=== PATIENT | male | born 1935 | race Asian ===

== ENCOUNTER 2022-04-27 11:01 | Inpatient (IN) | payer MEDICARE, OTHER ==
[~2022-04-27] VITALS: Ht 172.7 cm; Wt 72.7 kg
[2022-04-27 13:49] LABS: Basophils # (auto) 0 10 ^3/uL (0-0.2); Basophils % (auto) 0.2 % (0.0-2.0); Eosinophils # (auto) 0 10 ^3/uL (0-0.8); Eosinophils % (auto) 0.4 % (0.0-7.0); Hematocrit 38.2 % (41.0-53.0); Hemoglobin 13.1 g/dL (13.5-17.5); Lymphocytes # (auto) 1.1 10 ^3/uL (0.4-5.4); Lymphocytes % (auto) 16.4 % (10.0-50.0); Mean Corpuscular Hemoglobin 33.1 pg (28.0-32.0); Mean Corpuscular Hgb Conc. 34.4 g/dL (32.0-36.0); Mean Corpuscular Volume 96.4 fL (80.0-100.0); Monocytes # (auto) 0.5 10 ^3/uL (0-1.3); Monocytes % (auto) 7.9 % (0.0-12.0); Neutrophils # (auto) 4.9 10 ^3/uL (1.6-8.6); Neutrophils % (auto) 75.1 % (37.0-80.0); Nucleated Red Blood Cells % 0.1 %; Red Blood Cells 3.97 10^6/uL (4.5-5.90); Red Cell Distribution Width 13.8 % (11.8-14.3); White Blood Cell 6.5 10^3/uL (4.4-10.8)
[2022-04-27 13:59] LABS: BUN/Creatinine Ratio 22.5; Calcium 8.9 mg/dL (8.5-10.1); Potassium 4.1 mmol/L (3.5-5.1)
[2022-04-27 14:01] LABS: INR 1.1 (0.9-1.15); Partial Thromboplastin Time 37.6 sec (24.6-33.4)
[2022-04-27 14:02] LABS: Bilirubin, Total 1.1 mg/dL (0.2-1.0); Total Protein 6.7 g/dL (6.4-8.2)
[2022-04-27] MEDS ORDERED: TAMS0.4C36 PO (17:43)
[2022-04-27] MEDS ORDERED: SIMV-8 PO (17:43)
[2022-04-27] MEDS ORDERED: MEMA1TAB5 PO (17:43)
[2022-04-27] MEDS ORDERED: ACETAMINOPHEN 325 MG TAB PO PRN (17:45)
[2022-04-27] MEDS ORDERED: MORPHINE SULFATE INJ 2 MG/ml SYRG IV PRN (17:45)
[2022-04-27] MEDS ORDERED: HYDROcodone-ACET 5/325MG TAB PO PRN (17:45)
[2022-04-27 18:41] LABS: Cholesterol 138 mg/dL (< 200)
[2022-04-27 18:44] LABS: HDL Cholesterol 54 mg/dL (40-59); LDL Cholesterol 78 mg/dL (< 100); Triglycerides 71 mg/dL (< 150)
[2022-04-27 19:28] LABS: Urine WBC None Seen /hpf (0 - 3)
[2022-04-27 19:40] LABS: Urine Bacteria NONE SEEN /hpf (None Seen); Urine Blood Negative /uL (Negative); Urine Mucus FEW (None Seen); Urine Specific Gravity 1.017 (1.001-1.035)
[2022-04-28] MEDS: MEMANTINE HCL 5 MG TAB PO SCH (10:30)
[2022-04-28] MEDS: ENOXAPARIN SOD 40 MG/0.4 ML SYRINGE SC SCH (10:31)
[2022-04-28] MEDS ORDERED: HYDROcodone-ACET 5/325MG TAB PO PRN (13:45)
[2022-04-28] MEDS ORDERED: QUEtiapine FUMARATE 25 MG TAB PO PRN ×2 (14:45→15:00)
[2022-04-28] MEDS: ACETAMINOPHEN 500 MG TAB PO SCH ×2 (16:15→22:00)
[2022-04-28] MEDS ORDERED: TAMSULOSIN HYDROCHLORIDE 0.4 MG CAP PO SCH (18:00)
[2022-04-28] MEDS ORDERED: ATORVASTATIN 20 MG TAB PO SCH (22:00)
[2022-04-29] MEDS ORDERED: LORazepam 2MG/ML-1ML VIAL IM ONE (00:45)
[2022-04-29] MEDS ORDERED: HALOPERIDOL LACTATE 5 MG/ML INJ VIAL IM ONE (00:45)
[2022-04-29] MEDS: ACETAMINOPHEN 500 MG TAB PO SCH ×2 (07:30→14:00)
[2022-04-29 09:17] VITALS: BP 101/66
[2022-04-29] MEDS: ENOXAPARIN SOD 40 MG/0.4 ML SYRINGE SC SCH (10:00)
[2022-04-29] MEDS: MEMANTINE HCL 5 MG TAB PO SCH (10:00)
[2022-04-29 14:23] LABS: Albumin 3.2 g/dL (3.4-5.0); Calcium 8.7 mg/dL (8.5-10.1)
[2022-04-29 14:26] LABS: Bilirubin, Total 1.3 mg/dL (0.2-1.0); Total Protein 6.3 g/dL (6.4-8.2)
[2022-04-29 14:28] LABS: Basophils # (auto) 0 10 ^3/uL (0-0.2); Basophils % (auto) 0.3 % (0.0-2.0); Eosinophils # (auto) 0.1 10 ^3/uL (0-0.8); Eosinophils % (auto) 1.2 % (0.0-7.0); Hematocrit 38.9 % (41.0-53.0); Lymphocytes # (auto) 0.9 10 ^3/uL (0.4-5.4); Mean Corpuscular Hemoglobin 32.6 pg (28.0-32.0); Mean Corpuscular Hgb Conc. 33.5 g/dL (32.0-36.0); Mean Corpuscular Volume 97.2 fL (80.0-100.0); Monocytes # (auto) 0.5 10 ^3/uL (0-1.3); Neutrophils # (auto) 4.3 10 ^3/uL (1.6-8.6); Neutrophils % (auto) 74.5 % (37.0-80.0); Nucleated Red Blood Cells % 0.1 %; Red Cell Distribution Width 14.2 % (11.8-14.3); White Blood Cell 5.7 10^3/uL (4.4-10.8)
[2022-04-29] MEDS ORDERED: QUEtiapine FUMARATE 25 MG TAB PO SCH (22:00)
== END 2022-04-29 14:13 | disposition left against medical advice (07) | DRG 556 ==
LOC: EDBD 11:01 → ER 11:01 → OVERFLOW 17:41 → WEST WING 04-29 08:13
PROVIDERS: ADMIT Registered Nurse; ATTEND Student in an Organized Health Care Education/Training Program
DX: M25.551 Pain in right hip (principal); F03.90 Unspecified dementia, unspecified severity, without behavioral disturbance, psychotic disturbance, mood disturbance, and anxiety; N40.0 Benign prostatic hyperplasia without lower urinary tract symptoms; E78.5 Hyperlipidemia, unspecified; Z20.822 Contact with and (suspected) exposure to COVID-19; M79.89 Other specified soft tissue disorders; Z53.29 Procedure and treatment not carried out because of patient's decision for other reasons
CPT/HCPCS: 36415; 70450; 72192; 80053; 80061; 81001; 83880; 84484; 85025; 85379; 85610; 85730; 87426; 93971; G0378

== ENCOUNTER 2022-06-10 04:40 | Inpatient (IN) | payer MEDICARE, MEDICAID ==
[~2022-06-10] VITALS: Ht 182.9 cm; Wt 79.3 kg
[~2022-06-10 04:40] MED LIST: MEMA1TAB5 PO; SIMV-8 PO; TAMS0.4C36 PO
[2022-06-10 05:45] LABS: Albumin 3.5 g/dL (3.4-5.0); Calcium 8.5 mg/dL (8.5-10.1); Magnesium 2.9 mg/dL (1.6-2.6); Potassium 3.7 mmol/L (3.5-5.1)
[2022-06-10 05:48] LABS: Basophils # (auto) 0 10 ^3/uL (0-0.2); Basophils % (auto) 0.4 % (0.0-2.0); Eosinophils # (auto) 0 10 ^3/uL (0-0.8); Hematocrit 34.6 % (41.0-53.0); Hemoglobin 11.5 g/dL (13.5-17.5); Lymphocytes # (auto) 0.7 10 ^3/uL (0.4-5.4); Lymphocytes % (auto) 14.4 % (10.0-50.0); Mean Corpuscular Hemoglobin 32.3 pg (28.0-32.0); Mean Corpuscular Hgb Conc. 33.2 g/dL (32.0-36.0); Mean Corpuscular Volume 97.4 fL (80.0-100.0); Monocytes # (auto) 0.4 10 ^3/uL (0-1.3); Monocytes % (auto) 7.5 % (0.0-12.0); Neutrophils # (auto) 3.8 10 ^3/uL (1.6-8.6); Neutrophils % (auto) 76.7 % (37.0-80.0); Red Blood Cells 3.55 10^6/uL (4.5-5.90); Red Cell Distribution Width 15.6 % (11.8-14.3)
[2022-06-10 05:49] LABS: BUN/Creatinine Ratio 23.3 (10.0-20.0); Bilirubin, Total 0.6 mg/dL (0.2-1.0); Total Protein 6.6 g/dL (6.4-8.2)
[2022-06-10] MEDS ORDERED: CEPHALEXIN 250 MG CAP PO ONE (07:00)
[2022-06-10] MEDS ORDERED: TETANUS-DIPTH-ACEL PERTUSSIS 0.5ML SYR Tdap IM ONE (07:00)
[2022-06-10] MEDS ORDERED: ONDANSETRON HCL 4 MG/2 ML VIAL IV PRN (16:15)
[2022-06-10] MEDS ORDERED: DOCUSATE SOD 100 MG CAP PO PRN (16:15)
[2022-06-11 05:05] LABS: Basophils # (auto) 0 10 ^3/uL (0-0.2); Basophils % (auto) 0.8 % (0.0-2.0); Eosinophils # (auto) 0.1 10 ^3/uL (0-0.8); Eosinophils % (auto) 1.9 % (0.0-7.0); Hematocrit 34.3 % (41.0-53.0); Hemoglobin 11.3 g/dL (13.5-17.5); Lymphocytes # (auto) 0.6 10 ^3/uL (0.4-5.4); Lymphocytes % (auto) 16.5 % (10.0-50.0); Mean Corpuscular Hemoglobin 32.4 pg (28.0-32.0); Mean Corpuscular Volume 98.2 fL (80.0-100.0); Monocytes # (auto) 0.4 10 ^3/uL (0-1.3); Monocytes % (auto) 9.4 % (0.0-12.0); Neutrophils # (auto) 2.7 10 ^3/uL (1.6-8.6); Neutrophils % (auto) 71.4 % (37.0-80.0); Nucleated Red Blood Cells % 0.1 %; Red Cell Distribution Width 15.6 % (11.8-14.3); White Blood Cell 3.8 10^3/uL (4.4-10.8)
[2022-06-11 05:22] LABS: BUN/Creatinine Ratio 18.3 (10.0-20.0); Calcium 7.8 mg/dL (8.5-10.1); Magnesium 2.3 mg/dL (1.6-2.6); Potassium 3.4 mmol/L (3.5-5.1)
[2022-06-11 05:25] LABS: Bilirubin, Total 0.5 mg/dL (0.2-1.0); Total Protein 5.9 g/dL (6.4-8.2)
[2022-06-11] MEDS: ATORVASTATIN 20 MG TAB PO SCH ×3 (10:00→12:56)
[2022-06-11] MEDS: MEMANTINE HCL 5 MG TAB PO SCH ×3 (10:00→12:55)
[2022-06-11] MEDS: TAMSULOSIN HYDROCHLORIDE 0.4 MG CAP PO SCH ×3 (10:00→12:56)
[2022-06-11] MEDS: PANTOPRAZOLE 40 MG TAB PO SCH ×3 (10:00→12:58)
[2022-06-11] MEDS ORDERED: levoFLOXacin 500MG 100 ML IV ONE (13:00)
[2022-06-11] MEDS ORDERED: IOHEXOL 350 MG/ML 100ML IJ ONE (13:00)
[2022-06-12] VITALS (7 sets, daily range): BP systolic 97–109; BP diastolic 55–79
[2022-06-12] MEDS: levoFLOXacin 500MG 100 ML IV SCH (09:17)
[2022-06-12] MEDS: TAMSULOSIN HYDROCHLORIDE 0.4 MG CAP PO SCH (09:18)
[2022-06-12] MEDS: MEMANTINE HCL 5 MG TAB PO SCH (09:19)
[2022-06-12] MEDS: ATORVASTATIN 20 MG TAB PO SCH (09:19)
[2022-06-12] MEDS: PANTOPRAZOLE 40 MG TAB PO SCH (09:19)
[2022-06-12 16:05] LABS: Urine Bacteria NONE SEEN /hpf (None Seen); Urine Blood Negative /uL (Negative); Urine Mucus FEW (None Seen); Urine Specific Gravity 1.028 (1.001-1.035); Urine WBC 1 /hpf (0 - 3)
[2022-06-13] VITALS (7 sets, daily range): BP systolic 97–115; BP diastolic 46–70
[2022-06-13] MEDS: ATORVASTATIN 20 MG TAB PO SCH (09:01)
[2022-06-13] MEDS: PANTOPRAZOLE 40 MG TAB PO SCH (09:01)
[2022-06-13] MEDS: MEMANTINE HCL 5 MG TAB PO SCH (09:01)
[2022-06-13] MEDS: TAMSULOSIN HYDROCHLORIDE 0.4 MG CAP PO SCH (09:01)
[2022-06-13] MEDS: levoFLOXacin 500MG 100 ML IV SCH (09:02)
[2022-06-14 05:00] VITALS: BP 120/75
[2022-06-14 08:52] VITALS: BP 111/73
[2022-06-14] MEDS: ATORVASTATIN 20 MG TAB PO SCH (09:36)
[2022-06-14] MEDS: TAMSULOSIN HYDROCHLORIDE 0.4 MG CAP PO SCH (09:36)
[2022-06-14] MEDS: levoFLOXacin 500MG 100 ML IV SCH (09:36)
[2022-06-14] MEDS: MEMANTINE HCL 5 MG TAB PO SCH (09:36)
[2022-06-14] MEDS ORDERED: LEVO500T31 PO (09:53)
[2022-06-14 10:53] VITALS: BP 116/70
[2022-06-14 13:00] VITALS: BP 118/86
== END 2022-06-14 15:27 | disposition home health service (06) | DRG 183 ==
LOC: EDBD 04:40 → ER 04:40 → EDUNIT# 04:40 → TELE 16:13 → TELE-CENTR 06-11 23:35
PROVIDERS: ADMIT Nurse Practitioner Family; ATTEND Family Medicine
PROC: 0HQ0XZZ Repair Scalp Skin, External Approach (ICD-10-PCS; principal; 2022-06-10)
DX: S22.43XA Multiple fractures of ribs, bilateral, initial encounter for closed fracture (principal); J18.9 Pneumonia, unspecified organism; S27.322A Contusion of lung, bilateral, initial encounter; Y92.098 Other place in other non-institutional residence as the place of occurrence of the external cause; D72.829 Elevated white blood cell count, unspecified; E78.5 Hyperlipidemia, unspecified; F03.90 Unspecified dementia, unspecified severity, without behavioral disturbance, psychotic disturbance, mood disturbance, and anxiety; G89.11 Acute pain due to trauma; I10 Essential (primary) hypertension; E78.00 Pure hypercholesterolemia, unspecified; K59.00 Constipation, unspecified; F41.9 Anxiety disorder, unspecified; S01.01XA Laceration without foreign body of scalp, initial encounter; N40.0 Benign prostatic hyperplasia without lower urinary tract symptoms; W18.39XA Other fall on same level, initial encounter; Y93.89 Activity, other specified; Y99.8 Other external cause status
CPT/HCPCS: 12011; 36415; 70450; 71250; 71275; 72125; 74176; 80053; 81001; 83735; 84484; 85025; 85379; 87086; 90715; 93970; G0378; J1956

== ENCOUNTER 2022-06-23 10:41 | Emergency (ER) | payer MEDICARE, MEDICAID ==
[~2022-06-23] VITALS: Ht 177.8 cm; Wt 84.0 kg
[~2022-06-23 10:41] MED LIST changes: +LEVO500T31 PO
[2022-06-23 13:53] VITALS: BP 127/89
== END 2022-06-23 13:57 | disposition home or self-care (01) ==
LOC: ER 10:41 → EDBD 10:41 → ER 13:57
DX: S01.01XA Laceration without foreign body of scalp, initial encounter (principal); F41.9 Anxiety disorder, unspecified; E78.5 Hyperlipidemia, unspecified; I10 Essential (primary) hypertension; Z88.1 Allergy status to other antibiotic agents; X58.XXXA Exposure to other specified factors, initial encounter; Y93.89 Activity, other specified; Y92.89 Other specified places as the place of occurrence of the external cause; Y99.8 Other external cause status
CPT/HCPCS: 12002; 70450; 72125

== ENCOUNTER 2022-06-25 14:11 | Emergency (ER) | payer MEDICARE, MEDICAID ==
[~2022-06-25] VITALS: Ht 177.8 cm; Wt 78.0 kg
[2022-06-25 15:00] VITALS: BP 125/78
== END 2022-06-25 15:57 | disposition home or self-care (01) ==
LOC: ER 14:11
DX: S01.01XD Laceration without foreign body of scalp, subsequent encounter (principal); E78.5 Hyperlipidemia, unspecified; I10 Essential (primary) hypertension; X58.XXXD Exposure to other specified factors, subsequent encounter